=== PATIENT | female | born 1980 | race Caucasian/White ===

== ENCOUNTER 2024-03-16 09:06 | Day surgery (SDC) | payer OTHER ==
[2024-03-16] MEDS: Lactated Ringers 1,000 ML IV SCH (09:18)
[2024-03-16] MEDS ORDERED: Propofol 200 MG/20 ML SDV ONE (10:18)
[2024-03-16] MEDS ORDERED: fentaNYL 100 MCG/2 ML SDV ONE (10:18)
[2024-03-16] MEDS ORDERED: Midazolam 1 MG/ML 2 ML SDV ONE (10:31)
== END 2024-03-16 11:34 | disposition home or self-care (01) ==
LOC: VM.SDS 09:06
PROVIDERS: ATTEND Surgery
DX: Z12.11 Encounter for screening for malignant neoplasm of colon (principal); K63.5 Polyp of colon; E66.9 Obesity, unspecified; Z68.32 Body mass index [BMI] 32.0-32.9, adult
CPT/HCPCS: 00811; 45384; J2250; J2704; J3010; J7120